=== PATIENT | female | born 1935 | race Caucasian/White ===

== ENCOUNTER 2017-01-13 09:57 | Day surgery (SDC) | payer MEDICARE, BC ==
[~2017-01-13] VITALS: Ht 172.7 cm; Wt 58.9 kg
[~2017-01-13 09:57] MED LIST: ACIPHEX20 MG PO; ALDACTONE 25MG25 MG PO; ASPIRIN E.C. 8181 MG PO; ASPIRIN E.C.325 MG PO; ATIVAN 1MG T1 MG/TAB PO; ATIVAN1 MG PO; BACTRIM DS 8001 TAB PO; BENADRYL25 M2 PO; BENADRYL25 MG PO; BUTALBITAL/APAP1 TA1 PO; CALCIUM600 M2 PO; CLONAZEPAM PO; CLONAZEPAM0.5 M1 PO; COLACE 100100 MG/CAP PO; COREG3.125 MG PO; CYMBALTA 60MG60 MG PO; DALMANE15 MG PO; DIGITEK0.25 MG PO; FISH OIL1 IU PO; FLUOXETINE10 MG PO; FUROSEMIDE; GABAPENTIN100 MG PO; LEVAQUIN 750MG750 M1 PO; LISINOPRIL5 MG PO; MULTIPLE VITAMI1 TAB PO; MVI PO; NEURONTIN100 MG PO; NORCO 325 MG-51 TAB; OMEPRAZOLE20 MG PO; OMNICEF 300MG300 MG PO; OSCAL W/VIT D250 MG PO; PRILOSEC 20MG20 MG PO; PROZAC 20MG20 MG PO; RANITIDINE75 MG PO; RESTASIS; SAVELLA50 MG PO; ULTRAM 50MG TAB50 MG PO; VICODIN 5/5001 UDTAB PO; VICODIN PO; VITAMIN C1 TAB PO; VITAMIN D1000 IU PO; ZANTAC150 MG PO; ZOCOR40 MG PO
[2017-01-13 10:55] LABS: HEMATOCRIT 42.6 % (37.0-47.0); HEMOGLOBIN 14.2 g/dl (12.5-16.0); MEAN CELL VOLUME 99 fl (80.0-100.0); MEAN CORPUSCULAR HEMOGLOBIN 33 pg (27.0-31.0); MEAN CORPUSCULAR HGB CONC 33 g/dl (33.0-37.0); MEAN PLATELET VOLUME 10.2 fl (7.4-10.4); PLATELET COUNT 190 K/mm3 (130-400); RED BLOOD COUNT 4.31 M/mm3 (4.10-5.30); REDCELL DISTRIBUTION WIDTH-CV 13.2 % (11.5-14.5); WHITE BLOOD COUNT 8.7 K/mm3 (4.8-10.8)
[2017-01-13 10:57] LABS: PROTHROMBIN TIME 10.5 SECONDS (9.7-12.8)
[2017-01-13 11:03] LABS: CALCIUM 10.4 mg/dL (8.4-10.2); CREATININE, serum 0.94 mg/dL (0.52-1.25); POTASSIUM 4.2 mmol/L (3.4-5.0)
[2017-01-13] MEDS ORDERED: LASIX 20MG TABL20 MG PO (11:11)
[2017-01-13 11:30] VITALS: BP 122/55; PULSE 61; TEMP 97.8
[2017-01-13 12:48] VITALS: BP 137/73; PULSE 69
[2017-01-13 13:45] VITALS: BP 120/73; PULSE 69
[2017-01-13 14:00] VITALS: BP 122/66; PULSE 67
[2017-01-13 14:30] VITALS: BP 133/65; PULSE 66
[2017-01-13 15:00] VITALS: BP 139/71; PULSE 67
== END 2017-01-13 16:09 | disposition home or self-care (01) ==
LOC: COL.RAD 09:57 → EUO 09:57 → COL.RAD 10:00 → EUO 10:00
PROVIDERS: Internal Medicine Cardiovascular Disease
DX: R06.02 Shortness of breath (principal); Z45.02 Encounter for adjustment and management of automatic implantable cardiac defibrillator; I42.8 Other cardiomyopathies
CPT/HCPCS: C1882; J2250; J3010; J3370; J7030; J7050

== ENCOUNTER → 2017-03-04 | Outpatient (CLI) | payer MEDICARE, BC ==
[~2017-03-04] MED LIST changes: +LASIX 20MG TABL20 MG PO
== END ==
LOC: MC.RAD 03-01 15:40
DX: Z12.31 Encounter for screening mammogram for malignant neoplasm of breast (principal)

== ENCOUNTER → 2018-03-16 | Outpatient (CLI) | payer MEDICARE, BC | LOC: COL.VAS 12:30 | DX: M79.89 Other specified soft tissue disorders (principal) ==

== ENCOUNTER 2018-05-17 02:43 | Inpatient (IN) | payer MEDICARE, BC ==
[~2018-05-17] VITALS: Ht 172.7 cm; Wt 67.5 kg
[~2018-05-17 02:43] MED LIST changes: +ATIVAN 0.50.5 MG/TAB PO; -ATIVAN1 MG PO; -CLONAZEPAM PO; +COREG 3.123.125 MG/T PO; -COREG3.125 MG PO; +KLONOPIN 0.5MG0.5 MG PO; -NEURONTIN100 MG PO; +NEURONTIN600 MG/TAB PO
[2018-05-17 03:10] LABS: BASO # 0.1 (0.0-0.2); BASO % 0.5 % (0.0-2.0); EOS % 0.4 % (0-4.0); GRAN # 9.3 (1.4-6.5); GRAN % 83.6 % (42.2-75.2); HEMATOCRIT 41.5 % (37.0-47.0); HEMOGLOBIN 13.9 g/dl (12.5-16.0); LYMPH # 1.2 (1.2-3.4); LYMPH % 11.2 % (20.0-51.0); MEAN CELL VOLUME 99 fl (80.0-100.0); MEAN CORPUSCULAR HEMOGLOBIN 33 pg (27.0-31.0); MEAN CORPUSCULAR HGB CONC 34 g/dl (33.0-37.0); MEAN PLATELET VOLUME 10.2 fl (7.4-10.4); MONO # 0.4 (0.1-0.6); PLATELET COUNT 161 K/mm3 (130-400); RED BLOOD COUNT 4.18 M/mm3 (4.10-5.30); REDCELL DISTRIBUTION WIDTH-CV 13.4 % (11.5-14.5)
[2018-05-17 03:23] LABS: ALANINE AMINOTRANSFERASE 30 U/L (9-52); ALBUMIN 3.9 gm/dL (3.5-5.0); ALKALINE PHOSPHATASE 114 U/L (50-136); ANION GAP 9 mmol/L (7-16); AST,SGOT 18 U/L (15-37); BILIRUBIN,TOTAL 0.7 mg/dL (0.0-1.0); BLOOD UREA NITROGEN 16 mg/dL (7-17); C-REACTIVE PROTEIN 0.6 mg/dL (0.0-0.9); CARBON DIOXIDE 27 mmol/L (22-30); CHLORIDE 96 mmol/L (98-107); CREATININE, serum 0.66 mg/dL (0.52-1.25); GLUCOSE 130 mg/dL (74-106); LIPASE 30 U/L (23-300); POTASSIUM 3.9 mmol/L (3.4-5.0); SODIUM 132 mmol/L (137-145); TOTAL PROTEIN 6.5 gm/dL (6.4-8.2)
[2018-05-17 03:37] LABS: TROPONIN-I < 0.012 ng/mL (0.000-0.034)
[2018-05-17] MEDS ORDERED: NEURONTIN100 MG/CAP PO (03:37)
[2018-05-17] MEDS ORDERED: NORCO 325 MG-51 TAB PO (03:38)
[2018-05-17] MEDS ORDERED: PROZAC40 MG PO (03:39)
[2018-05-17] MEDS ORDERED: PROZAC 20MG20 MG PO (03:40)
[2018-05-17] MEDS ORDERED: NEXIUM 20MG20 MG PO (03:42)
[2018-05-17] MEDS ORDERED: ZANTAC 150MG T150 MG PO (03:43)
[2018-05-17] MEDS ORDERED: EXCEDRIN1 TAB PO (03:43)
[2018-05-17] MEDS ORDERED: CLARITIN 1010 MG/TAB PO (03:44)
[2018-05-17] MEDS ORDERED: WELLBUTRIN 75MG75 MG PO (04:04)
[2018-05-17 04:38] LABS: COLLECTION METHOD CLEAN CATCH
[2018-05-17 04:50] LABS: PH 5 (5-8); SQUAMOUS EPITHELIAL 0-2 /hpf; URINE APPEARANCE Clear; URINE BACTERIA Rare /hpf; URINE BILIRUBIN Negative (NEGATIVE); URINE BLOOD Negative (NEGATIVE); URINE COLOR Yellow; URINE GLUCOSE Negative (NEGATIVE); URINE KETONE Trace (NEGATIVE); URINE LEUKOCYTE ESTERASE Trace (NEGATIVE); URINE NITRATE Positive (NEGATIVE); URINE PROTEIN(semi-quant) Negative (NEGATIVE); URINE RBC 0-2 /hpf; URINE UROBILINOGEN Negative (NEGATIVE)
[2018-05-17 08:14] VITALS: BP 121/58; PULSE 49; TEMP 99
[2018-05-17 11:54] VITALS: BP 115/50; PULSE 87; TEMP 98.5
[2018-05-17 16:16] VITALS: BP 123/66; PULSE 78; TEMP 98.2
[2018-05-17 20:11] VITALS: BP 110/58; PULSE 96; TEMP 98.3
[2018-05-17 23:21] VITALS: BP 119/54; PULSE 95; TEMP 98.7
[2018-05-18 04:24] VITALS: BP 101/46; PULSE 86; TEMP 100.4
[2018-05-18 06:45] LABS: BASO # 0.1 (0.0-0.2); BASO % 0.5 % (0.0-2.0); EOS % 0.1 % (0-4.0); GRAN # 8.5 (1.4-6.5); GRAN % 80.3 % (42.2-75.2); LYMPH # 1.5 (1.2-3.4); LYMPH % 14.2 % (20.0-51.0); MEAN CELL VOLUME 101 fl (80.0-100.0); MEAN CORPUSCULAR HGB CONC 32 g/dl (33.0-37.0); MEAN PLATELET VOLUME 10.9 fl (7.4-10.4); MONO # 0.5 (0.1-0.6); MONO % 4.3 % (1.7-9.3); PLATELET COUNT 139 K/mm3 (130-400); RED BLOOD COUNT 3.66 M/mm3 (4.10-5.30); REDCELL DISTRIBUTION WIDTH-CV 13.7 % (11.5-14.5)
[2018-05-18 06:54] LABS: HEMATOCRIT 36.9 % (37.0-47.0); HEMOGLOBIN 11.9 g/dl (12.5-16.0); MEAN CORPUSCULAR HEMOGLOBIN 33 pg (27.0-31.0)
[2018-05-18 06:59] LABS: CALCIUM 9.9 mg/dL (8.4-10.2); CREATININE, serum 0.6 mg/dL (0.52-1.25); POTASSIUM 3.9 mmol/L (3.4-5.0)
[2018-05-18 08:04] VITALS: BP 123/57; PULSE 57; TEMP 99.1
[2018-05-18 13:20] VITALS: BP 117/51; PULSE 64
[2018-05-18 13:35] VITALS: BP 131/59; PULSE 65
[2018-05-18 13:50] VITALS: BP 135/68; PULSE 85
[2018-05-18 14:05] VITALS: BP 130/62; PULSE 62
== END 2018-05-18 16:51 | disposition short-term general hospital (02) | DRG 391 ==
LOC: COL.ER 02:43 → MEDICAL 05:38
PROVIDERS: Emergency Medicine; Physician Assistant; Surgery
PROC: 0DJ08ZZ Inspection of Upper Intestinal Tract, Via Natural or Artificial Opening Endoscopic (ICD-10-PCS; principal; 2018-05-18 12:00)
DX: K22.2 Esophageal obstruction (principal); J69.0 Pneumonitis due to inhalation of food and vomit; I50.22 Chronic systolic (congestive) heart failure; N39.0 Urinary tract infection, site not specified; K21.0 Gastro-esophageal reflux disease with esophagitis; Z95.0 Presence of cardiac pacemaker; M79.7 Fibromyalgia; Z87.891 Personal history of nicotine dependence; G62.9 Polyneuropathy, unspecified; I48.91 Unspecified atrial fibrillation
CPT/HCPCS: 99223-AI; 99239; C9113; J0696; J1650; J2060; J2250; J2405; J2550; J2704; J7030; J7050; Q9967

== ENCOUNTER → 2018-05-31 | Outpatient (REF) ==
[~2018-05-31] MED LIST changes: +CLARITIN 1010 MG/TAB PO; +EXCEDRIN1 TAB PO; +NEURONTIN100 MG/CAP PO; +NEXIUM 20MG20 MG PO; +NORCO 325 MG-51 TAB PO; +PROZAC40 MG PO; +WELLBUTRIN 75MG75 MG PO; +ZANTAC 150MG T150 MG PO
[2018-05-31 17:35] LABS: COLLECTION METHOD CLEAN CATCH
[2018-05-31 17:47] LABS: MUCOUS Present /lpf; PH 9 (5-8); SQUAMOUS EPITHELIAL 0-2 /hpf; URINE APPEARANCE Clear; URINE BACTERIA Rare /hpf; URINE BILIRUBIN Negative (NEGATIVE); URINE BLOOD Negative (NEGATIVE); URINE COLOR Straw; URINE GLUCOSE Negative (NEGATIVE); URINE KETONE Negative (NEGATIVE); URINE LEUKOCYTE ESTERASE Negative (NEGATIVE); URINE NITRATE Negative (NEGATIVE); URINE PROTEIN(semi-quant) Negative (NEGATIVE); URINE RBC 0-2 /hpf; URINE UROBILINOGEN Negative (NEGATIVE); URINE WBC 0-2 /hpf
== END ==
LOC: ZCOL.LAB 17:33
PROVIDERS: Internal Medicine
DX: D72.829 Elevated white blood cell count, unspecified (principal); R33.9 Retention of urine, unspecified; R82.99 Other abnormal findings in urine

== ENCOUNTER → 2018-06-02 | Outpatient (CLI) | payer MEDICARE, BC | LOC: COL.RAD 14:17 | DX: J18.1 Lobar pneumonia, unspecified organism (principal); B34.8 Other viral infections of unspecified site | CPT/HCPCS: Q9967 ==

== ENCOUNTER 2018-11-15 14:45 | Inpatient (IN) | payer MEDICARE, BC ==
[~2018-11-15] VITALS: Ht 172.7 cm; Wt 70.6 kg
[2018-11-15] MEDS ORDERED: NEURONTIN100 MG/CAP PO (14:53)
[2018-11-15] MEDS ORDERED: NEURONTIN600 MG/TAB PO (14:56)
[2018-11-15] MEDS ORDERED: ERGOCALCIFER50000 IU PO (14:58)
[2018-11-15] MEDS ORDERED: PRILOSEC 20MG20 MG PO (14:59)
[2018-11-15] MEDS ORDERED: ULTRAM 50MG TAB50 MG PO (15:01)
[2018-11-15] MEDS ORDERED: COREG 3.123.125 MG/T PO (15:02)
[2018-11-15] MEDS ORDERED: CYMBALTA 60MG60 MG PO (15:03)
[2018-11-15] MEDS ORDERED: KLONOPIN 0.5MG0.5 MG PO (15:04)
[2018-11-15] MEDS ORDERED: ALDACTONE 25MG25 M1 PO (15:05)
[2018-11-15] MEDS ORDERED: LASIX 20MG TABL20 MG PO (15:07)
[2018-11-15 16:01] LABS: BASO # 0.1 (0.0-0.2); BASO % 0.7 % (0.0-2.0); EOS # 0.2 (0.0-0.7); EOS % 2.2 % (0-4.0); GRAN # 5.3 (1.4-6.5); GRAN % 59.9 % (42.2-75.2); HEMATOCRIT 39.2 % (37.0-47.0); HEMOGLOBIN 12.7 g/dl (12.5-16.0); LYMPH # 2.5 (1.2-3.4); LYMPH % 27.4 % (20.0-51.0); MEAN CELL VOLUME 97 fl (80.0-100.0); MEAN CORPUSCULAR HEMOGLOBIN 32 pg (27.0-31.0); MEAN CORPUSCULAR HGB CONC 32 g/dl (33.0-37.0); MEAN PLATELET VOLUME 10.3 fl (7.4-10.4); MONO # 0.9 (0.1-0.6); MONO % 9.5 % (1.7-9.3); PLATELET COUNT 180 K/mm3 (130-400); RED BLOOD COUNT 4.03 M/mm3 (4.10-5.30); REDCELL DISTRIBUTION WIDTH-CV 14.6 % (11.5-14.5)
[2018-11-15 16:07] LABS: PROTHROMBIN TIME 11.1 SECONDS (9.7-12.8)
[2018-11-15 16:12] LABS: ALBUMIN 3.5 gm/dL (3.5-5.0); BILIRUBIN,TOTAL 0.6 mg/dL (0.0-1.0); CALCIUM 9.9 mg/dL (8.4-10.2); CREATININE, serum 0.68 mg/dL (0.52-1.25); POTASSIUM 4.5 mmol/L (3.4-5.0); TOTAL PROTEIN 5.9 gm/dL (6.4-8.2)
[2018-11-15 16:26] LABS: COLLECTION METHOD CATHETER
[2018-11-15 16:31] LABS: MUCOUS Present /lpf; PH 5 (5-8); SQUAMOUS EPITHELIAL 0-2 /hpf; URINE APPEARANCE Clear; URINE BACTERIA None Seen /hpf; URINE BILIRUBIN Negative (NEGATIVE); URINE BLOOD Negative (NEGATIVE); URINE COLOR Yellow; URINE GLUCOSE Negative (NEGATIVE); URINE KETONE Negative (NEGATIVE); URINE LEUKOCYTE ESTERASE Negative (NEGATIVE); URINE NITRATE Negative (NEGATIVE); URINE PROTEIN(semi-quant) Negative (NEGATIVE); URINE RBC 0-2 /hpf; URINE UROBILINOGEN Negative (NEGATIVE)
[2018-11-15 17:36] VITALS: BP 113/64; PULSE 60; TEMP 97.8
[2018-11-15 17:39] VITALS: BP 113/64; PULSE 60; TEMP 97.8
--- NOTE | 2018-11-15 19:33 | NUR ---
Patient settled into room 345. Report from ER nurse. Patient Inital,5 page an med rec completed. Patient given IV dilaudid for pain per orders. It did relieve her pain, but she does report chronic leg cramps. Scds to Ble which she reports helped. Mohsen to LLE. Ice pack to Right Hip. Rle elevated. Npo at 0000, she is having pudding and crackers for dinner. Bedside report to Mac JULIAN
[2018-11-15 20:16] VITALS: BP 112/53; PULSE 62; TEMP 97.6
[2018-11-15 21:00] VITALS: BP 110/55; PULSE 63; TEMP 97.5
[2018-11-16] VITALS (13 sets, daily range): BP systolic 85–126; BP diastolic 45–64; PULSE 66–99; TEMP 97.3–98.6
--- NOTE | 2018-11-16 06:15 | NUR ---
Pt slept during the night, she has some C/O pain relieved by medication, ice packs, VS have remained stable during the shift.
[2018-11-16 06:40] LABS: BASO % 0.4 % (0.0-2.0); EOS # 0.2 (0.0-0.7); EOS % 1.7 % (0-4.0); GRAN # 5.4 (1.4-6.5); GRAN % 58.5 % (42.2-75.2); HEMOGLOBIN 11.7 g/dl (12.5-16.0); LYMPH # 2.6 (1.2-3.4); LYMPH % 28.6 % (20.0-51.0); MEAN CELL VOLUME 97 fl (80.0-100.0); MEAN CORPUSCULAR HEMOGLOBIN 32 pg (27.0-31.0); MEAN CORPUSCULAR HGB CONC 33 g/dl (33.0-37.0); MEAN PLATELET VOLUME 10.7 fl (7.4-10.4); MONO % 10.5 % (1.7-9.3); PLATELET COUNT 177 K/mm3 (130-400); RED BLOOD COUNT 3.62 M/mm3 (4.10-5.30); REDCELL DISTRIBUTION WIDTH-CV 14.8 % (11.5-14.5)
[2018-11-16 06:44] LABS: HEMATOCRIT 35.1 % (37.0-47.0)
[2018-11-16 06:49] LABS: CALCIUM 9.8 mg/dL (8.4-10.2); CREATININE, serum 0.66 mg/dL (0.52-1.25)
[2018-11-16 07:12] LABS: POTASSIUM 4.6 mmol/L (3.4-5.0)
--- NOTE | 2018-11-16 12:33 | NUR ---
Initial visit; Patient thanked Timber Robber for looking in on her and offering God's blessings.
--- NOTE | 2018-11-16 14:26 | NUR ---
SW and SW student met with the patient to discuss discharge plan. The patient lives alone at [facility] in independent living. She reports independence with ADLs and has a cane and walker. The patient's PCP is Dr. Isaias Gil and she receives her medications by delivery through [employer]. She reports no difficulties obtaining her meds. The patient does not have advanced directives in EMR, but she states that she does have them completed and that her daughter is her DPOA-HC. The patient is to possibly have surgery today. SW to continue to follow.
--- NOTE | 2018-11-16 20:00 | NUR ---
Patient in bed resting. Alert and oriented x3. Shift assessment complete. Incision x3 to right hip, with gauze, CDI. Pierre to dependent drainage with hazy alverto urine present. Tedhose and SCDs to BLE. Denies pain at this time. Denies pain at this time. Denies further needs at this time.
[2018-11-17] VITALS (7 sets, daily range): BP systolic 91–113; BP diastolic 39–57; PULSE 64–79; TEMP 97.8–98.4
--- NOTE | 2018-11-17 00:57 | NUR ---
Contacted Stacy COMMUNITY SERVICE ORGANIZATION DIRECTOR. Patient having low urine output. Small bolus ordered. Will continue to monitor.
--- NOTE | 2018-11-17 05:10 | NUR ---
Patient has rested well through the night. Minimal needs. Pierre maintained to dependent drainage with hazy alverto urine present. Denies pain at this time. Denies further needs at this time. Will report off to day shift.
[2018-11-17 06:56] LABS: HEMATOCRIT 31.3 % (37.0-47.0)
[2018-11-17 07:05] LABS: CREATININE, serum 0.61 mg/dL (0.52-1.25)
--- NOTE | 2018-11-17 09:02 | NUR ---
Patient alert and oriented, answers questions appropriately. See assessment. RLE with three incision sites, dressings with drainage noted. New dressings applied per drs order. 1+ edema noted to RLE, pulses palpable, no numbness or tingling. Pierre catheter removed per drs order. Patient assisted to chair with assist x1, gait belt and FWW. No other c/o at this time.
--- NOTE | 2018-11-17 11:38 | NUR ---
The patient's nurse informed MARY KAY that the patient is wanting to go to [facility] for a skilled stay upon discharge. MARY KAY has contacted and faxed a referral to Kaykay at [facility]. MARY KAY to continue to follow.
--- NOTE | 2018-11-17 15:52 | NUR ---
Kaykay, at [facility], reports that they can accept the patient for a skilled stay. SW informed the patient.
--- NOTE | 2018-11-17 20:30 | NUR ---
Patient resting in bed at this time. Patient is alert and oriented, answers questions appropriately. Gauze dressing over incisions to right hip are CDI. Patient is not moving operative leg well, has significant amount of pain just with repositioning, but declines pain medication. Patient states she is very anxious about needing to get up to the bathroom during the night because she is not moving well and having a lot of pain. Patient educated on using her call light before need is significant. Patient denies further needs at this time, call light within reach.
[2018-11-18 04:15] VITALS: BP 126/55; PULSE 98; TEMP 98.2
--- NOTE | 2018-11-18 05:42 | NUR ---
Patient rested intermittently overnight. Patient up to bedside commode with x2 assist and a moderate amount of pain. Patient had a small amount of continent urine output. Patient declined pain medication, but has been increasingly confused overnight, reoriented fairly easily. Patient denies further needs at this time, call light within reach.
[2018-11-18 06:49] LABS: BASO % 0.3 % (0.0-2.0); EOS # 0.1 (0.0-0.7); EOS % 0.6 % (0-4.0); GRAN # 6.8 (1.4-6.5); GRAN % 69.1 % (42.2-75.2); LYMPH # 1.9 (1.2-3.4); LYMPH % 18.9 % (20.0-51.0); MEAN CELL VOLUME 98 fl (80.0-100.0); MEAN CORPUSCULAR HGB CONC 33 g/dl (33.0-37.0); MONO # 1.1 (0.1-0.6); MONO % 10.7 % (1.7-9.3); PLATELET COUNT 137 K/mm3 (130-400); RED BLOOD COUNT 2.73 M/mm3 (4.10-5.30); REDCELL DISTRIBUTION WIDTH-CV 14.6 % (11.5-14.5)
[2018-11-18 06:52] LABS: HEMATOCRIT 26.7 % (37.0-47.0); HEMOGLOBIN 8.9 g/dl (12.5-16.0); MEAN CORPUSCULAR HEMOGLOBIN 33 pg (27.0-31.0)
[2018-11-18 07:00] LABS: CALCIUM 9.4 mg/dL (8.4-10.2); CREATININE, serum 0.56 mg/dL (0.52-1.25); POTASSIUM 3.8 mmol/L (3.4-5.0)
[2018-11-18] MEDS ORDERED: KLONOPIN 0.5MG0.5 MG PO (10:14)
[2018-11-18] MEDS ORDERED: ULTRAM 50MG TAB50 MG PO (10:14)
[2018-11-18] MEDS ORDERED: ASPI325T6 PO (10:14)
[2018-11-18] MEDS ORDERED: GOOD NEIGH1200 MG/15 PO (10:15)
[2018-11-18] MEDS ORDERED: OSCAL 500 TAB500 MG PO (10:15)
[2018-11-18] MEDS ORDERED: VITAMIN C500 MG PO (10:16)
[2018-11-18] MEDS ORDERED: DUO-KAPS1 CAP PO (10:17)
--- NOTE | 2018-11-18 11:00 | NUR ---
Faxed DC orders to [facility], Transport setup for 12 noon. Relayed infor to . NOthing further.
[2018-11-18 11:53] VITALS: BP 126/55; PULSE 98; TEMP 98.2
--- NOTE | 2018-11-18 13:04 | NUR ---
Patient transferred to [facility] via wheelchair with transporation staff at 1250. Attempted to call report, no answer, will attempt again.
== END 2018-11-18 12:45 | DRG 481 ==
LOC: COL.ER 14:45 → SURG 15:54
PROVIDERS: Emergency Medicine; Nurse Practitioner Family; Orthopaedic Surgery; Physician Assistant; ADMIT Orthopaedic Surgery Sports Medicine
PROC: 0QH636Z Insertion of Intramedullary Internal Fixation Device into Right Upper Femur, Percutaneous Approach (ICD-10-PCS; principal; 2018-11-16 16:00)
DX: S72.141A Displaced intertrochanteric fracture of right femur, initial encounter for closed fracture (principal); E87.1 Hypo-osmolality and hyponatremia; I50.22 Chronic systolic (congestive) heart failure; M79.7 Fibromyalgia; G89.29 Other chronic pain; F41.8 Other specified anxiety disorders; G62.9 Polyneuropathy, unspecified; W00.0XXA Fall on same level due to ice and snow, initial encounter; Z95.0 Presence of cardiac pacemaker; Z87.891 Personal history of nicotine dependence; E83.52 Hypercalcemia
CPT/HCPCS: 99222-AI; 99233-AI; A9284; C1713; J0690; J1170; J2250; J2370; J2405; J2704; J2795; J3010; J7030; J7040

== ENCOUNTER → 2018-12-15 | Outpatient (REF) ==
[~2018-12-15] MED LIST changes: +ALDACTONE 25MG25 M1 PO; +ASPI325T6 PO; +DUO-KAPS1 CAP PO; +ERGOCALCIFER50000 IU PO; +GOOD NEIGH1200 MG/15 PO; +OSCAL 500 TAB500 MG PO; +VITAMIN C500 MG PO
[2018-12-15 18:11] LABS: BASO # 0.1 (0.0-0.2); BASO % 0.5 % (0.0-2.0); EOS # 0.1 (0.0-0.7); EOS % 0.4 % (0-4.0); GRAN # 13.6 (1.4-6.5); GRAN % 80.1 % (42.2-75.2); HEMATOCRIT 40.1 % (37.0-47.0); LYMPH # 2.3 (1.2-3.4); LYMPH % 13.7 % (20.0-51.0); MEAN CELL VOLUME 98 fl (80.0-100.0); MEAN CORPUSCULAR HEMOGLOBIN 32 pg (27.0-31.0); MEAN CORPUSCULAR HGB CONC 32 g/dl (33.0-37.0); MEAN PLATELET VOLUME 10.7 fl (7.4-10.4); MONO # 0.8 (0.1-0.6); MONO % 4.9 % (1.7-9.3); PLATELET COUNT 245 K/mm3 (130-400); RED BLOOD COUNT 4.11 M/mm3 (4.10-5.30); REDCELL DISTRIBUTION WIDTH-CV 14.7 % (11.5-14.5)
[2018-12-15 18:17] LABS: CALCIUM 10.8 mg/dL (8.4-10.2); CREATININE, serum 0.86 mg/dL (0.52-1.25); POTASSIUM 4.1 mmol/L (3.4-5.0)
[2018-12-16 10:48] LABS: COLLECTION METHOD CATHETER
[2018-12-16 10:57] LABS: MUCOUS Present /lpf; PH 6 (5-8); SQUAMOUS EPITHELIAL 0-2 /hpf; URINE APPEARANCE Clear; URINE BACTERIA Rare /hpf; URINE BILIRUBIN Negative (NEGATIVE); URINE BLOOD Negative (NEGATIVE); URINE COLOR Yellow; URINE GLUCOSE Negative (NEGATIVE); URINE KETONE Negative (NEGATIVE); URINE LEUKOCYTE ESTERASE Negative (NEGATIVE); URINE NITRATE Negative (NEGATIVE); URINE PROTEIN(semi-quant) Negative (NEGATIVE); URINE RBC 0-2 /hpf; URINE UROBILINOGEN Negative (NEGATIVE); URINE WBC 0-2 /hpf
== END ==
LOC: ZCOL.LAB 18:06
PROVIDERS: Internal Medicine
DX: Z01.89 Encounter for other specified special examinations (principal)

== ENCOUNTER → 2020-07-18 | Outpatient (CLI) | payer MEDICARE, BC | LOC: COL.RAD 10:22 | DX: D35.1 Benign neoplasm of parathyroid gland (principal) | CPT/HCPCS: A9500 ==

== ENCOUNTER → 2021-03-30 | Outpatient (CLI) | payer MEDICARE, BC ==
[~2021-03-30] MED LIST changes: +ALAVERT10 M1 PO; +ARICEPT10 MG PO; +CORDARONE200 MG/TAB PO; +DESYREL 50MG50 MG PO; +EFFEXOR XR37.5 MG/CA PO; +EFFEXOR XR75 MG/CAP PO; +FLAGYL500 MG PO; +FLONASEALLERGY NS; +FOSAMAX 70MG TA70 MG PO; +PEPCID 20MG TAB20 MG PO; +PROTONIX 40MG T40 MG PO; +REQUIP0.25 MG PO; +ROXICODONE 55 MG/TAB PO; +SYNTHROID0.05 MG/TA PO; +TYLENOL 325MG325 MG PO; +VISION FORMULA1 EAC1 PO; +VITAMIN D31000 I1 PO; +WELLBUTRIN XL150 MG PO; +XANAX 0.5MG0.5 MG PO; +ZOFRAN 4MG T4 MG/TAB PO
[2021-03-30 13:49] LABS: BASO # 0.1 (0.0-0.2); BASO % 0.7 % (0.0-2.0); EOS % 0.2 % (0-4.0); GRAN # 5.8 (1.4-6.5); HEMATOCRIT 48.4 % (37.0-47.0); LYMPH # 2.3 (1.2-3.4); MEAN CELL VOLUME 103 fl (80.0-100.0); MEAN CORPUSCULAR HEMOGLOBIN 34 pg (27.0-31.0); MEAN CORPUSCULAR HGB CONC 33 g/dl (33.0-37.0); MEAN PLATELET VOLUME 11.2 fl (7.4-10.4); MONO # 0.8 (0.1-0.6); MONO % 8.8 % (1.7-9.3); PLATELET COUNT 215 K/mm3 (130-400); RED BLOOD COUNT 4.72 M/mm3 (4.10-5.30); REDCELL DISTRIBUTION WIDTH-CV 13.6 % (11.5-14.5)
[2021-03-30 13:54] LABS: ALANINE AMINOTRANSFERASE 21 U/L (4-34); ALBUMIN 4.4 gm/dL (3.5-5.0); ALKALINE PHOSPHATASE 75 U/L (50-136); ANION GAP 7 mmol/L (7-16); AST,SGOT 27 U/L (15-37); BILIRUBIN,TOTAL 1.2 mg/dL (0.0-1.0); BLOOD UREA NITROGEN 21 mg/dL (7-17); CALCIUM 9.9 mg/dL (8.4-10.2); CARBON DIOXIDE 29 mmol/L (22-30); CHLORIDE 101 mmol/L (98-107); CREATININE, serum 0.81 (0.52-1.25); GLUCOSE 115 mg/dL (74-106); POTASSIUM 4.2 mmol/L (3.4-5.0); SODIUM 137 mmol/L (137-145); TOTAL PROTEIN 7.5 gm/dL (6.4-8.2)
[2021-03-30 14:09] LABS: TROPONIN-I < 0.012 ng/mL (0.000-0.035)
== END ==
LOC: ZCOL.LAB 12:39
PROVIDERS: Nurse Practitioner Family
DX: D35.1 Benign neoplasm of parathyroid gland (principal); R61 Generalized hyperhidrosis; R06.00 Dyspnea, unspecified

== ENCOUNTER 2021-09-03 13:26 | Inpatient (IN) | payer MEDICARE, BC ==
[~2021-09-03] VITALS: Ht 175.3 cm; Wt 79.4 kg
[~2021-09-03 13:26] MED LIST changes: -ALAVERT10 M1 PO; -ARICEPT10 MG PO; -CORDARONE200 MG/TAB PO; -DESYREL 50MG50 MG PO; -EFFEXOR XR37.5 MG/CA PO; -EFFEXOR XR75 MG/CAP PO; -FLAGYL500 MG PO; -FLONASEALLERGY NS; -FOSAMAX 70MG TA70 MG PO; -PEPCID 20MG TAB20 MG PO; -PROTONIX 40MG T40 MG PO; -REQUIP0.25 MG PO; -ROXICODONE 55 MG/TAB PO; -SYNTHROID0.05 MG/TA PO; -TYLENOL 325MG325 MG PO; -VISION FORMULA1 EAC1 PO; -VITAMIN D31000 I1 PO; -WELLBUTRIN XL150 MG PO; -XANAX 0.5MG0.5 MG PO; -ZOFRAN 4MG T4 MG/TAB PO
[2021-09-03 14:30] LABS: BASO % 0.4 % (0.0-2.0); EOS % 0.2 % (0-4.0); GRAN # 3.4 K/mm3 (1.4-6.5); GRAN % 69.9 % (42.2-75.2); HEMATOCRIT 49.4 % (37.0-47.0); HEMOGLOBIN 16.5 g/dl (12.5-16.0); LYMPH # 1.2 K/mm3 (1.2-3.4); LYMPH % 24.6 % (20.0-51.0); MEAN CELL VOLUME 100 fl (80.0-100.0); MEAN CORPUSCULAR HEMOGLOBIN 34 pg (27.0-31.0); MEAN CORPUSCULAR HGB CONC 33 g/dl (33.0-37.0); MONO # 0.2 K/mm3 (0.1-0.6); MONO % 4.5 % (1.7-9.3); PLATELET COUNT 157 K/mm3 (130-400); RED BLOOD COUNT 4.92 M/mm3 (4.10-5.30); REDCELL DISTRIBUTION WIDTH-CV 14.2 % (11.5-14.5)
[2021-09-03 14:55] LABS: ALBUMIN 4.1 gm/dL (3.4-4.8); BILIRUBIN,TOTAL 0.8 mg/dL (0.2-1.2); CALCIUM 9.3 mg/dL (8.4-10.2); CREATININE, serum 1.06 mg/dL (0.57-1.11); POTASSIUM 4.6 mmol/L (3.5-4.5); TOTAL PROTEIN 6.9 gm/dL (6.2-8.1)
[2021-09-03] MEDS ORDERED: ULTRAM 50MG TAB50 MG PO (16:42)
[2021-09-03] MEDS ORDERED: SYNTHROID0.05 MG/TA PO (16:44)
[2021-09-03] MEDS ORDERED: XANAX 0.5MG0.5 MG PO (16:44)
[2021-09-03] MEDS ORDERED: REQUIP0.25 MG PO (16:44)
[2021-09-03] MEDS ORDERED: EFFEXOR XR75 MG/CAP PO (16:45)
[2021-09-03] MEDS ORDERED: DESYREL 50MG50 MG PO (16:45)
[2021-09-03] MEDS ORDERED: PEPCID 20MG TAB20 MG PO (16:46)
[2021-09-03] MEDS ORDERED: CORDARONE200 MG/TAB PO (16:46)
[2021-09-03] MEDS ORDERED: WELLBUTRIN XL150 MG PO (16:46)
[2021-09-03] MEDS ORDERED: PROTONIX 40MG T40 MG PO (16:48)
[2021-09-03] MEDS ORDERED: FOSAMAX 70MG TA70 MG PO (16:48)
[2021-09-03] MEDS ORDERED: ARICEPT10 MG PO (16:48)
[2021-09-03] MEDS ORDERED: ALDACTONE 25MG25 M1 PO (16:49)
[2021-09-03 18:05] VITALS: BP 96/55; PULSE 79; TEMP 97.5
[2021-09-03 19:46] VITALS: BP 141/49; PULSE 87; TEMP 98.2
[2021-09-04] VITALS (7 sets, daily range): BP systolic 94–126; BP diastolic 43–95; PULSE 46–102; TEMP 97.5–99.4
--- NOTE | 2021-09-04 01:09 | NUR ---
PATIENT HAS BEEN VERY ANXIOUS AND RESTLESS D/T ABD PAIN. UNABLE TO ANSWER QUESTIONS D/T ABD PAIN. GIVEN IV MORPHINE ORDERED WITH PATIENT ABLE TO TOLERATE PO ULTRAM INBETWEEN IV MORPHINE DOSING. SEE MAR FOR XANAX GIVEN DUE TO PATIENT'S ANXIETY, PATIENT AGREED SHE WOULD NEED XANAX TO HELP WITH ANXIETY AND PAIN. PATIENT FREQUENTLY TURNED FROM SIDE TO SIDE FOR COMFORT.
--- NOTE | 2021-09-04 05:49 | NUR ---
PATIENT STATES SHE IS STILL UNABLE TO RECALL WHAT MEDICATIONS SHE ROUTINELY TAKES. CONFIRMES THAT HER PHARMACY IS [facility] IN [facility], STATES SHE HAS A LIST OF HER MEDS "BACK AT MY APARTMENT"
[2021-09-04 06:21] LABS: HEMATOCRIT 42.5 % (37.0-47.0); MEAN CELL VOLUME 103 fl (80.0-100.0); MEAN CORPUSCULAR HEMOGLOBIN 34 pg (27.0-31.0); MEAN CORPUSCULAR HGB CONC 33 g/dl (33.0-37.0); MEAN PLATELET VOLUME 10.8 fl (7.4-10.4); PLATELET COUNT 177 K/mm3 (130-400); RED BLOOD COUNT 4.12 M/mm3 (4.10-5.30); REDCELL DISTRIBUTION WIDTH-CV 14.6 % (11.5-14.5)
[2021-09-04 06:32] LABS: C-REACTIVE PROTEIN 15.91 mg/dL (0.00-0.50); CALCIUM 7.8 mg/dL (8.4-10.2); CREATININE, serum 1.3 mg/dL (0.57-1.11); POTASSIUM 4.9 mmol/L (3.5-4.5)
[2021-09-04 06:37] LABS: HEMOGLOBIN 13.9 g/dl (12.5-16.0)
--- NOTE | 2021-09-04 07:02 | NUR ---
CHANGE OF SHIFT REPORT GIVEN TO DAY SHIFT NURSE, MORRIS JULIAN.
--- NOTE | 2021-09-04 07:26 | NUR ---
PATIENT x2 ASSIST WITH TRANSFER THIS MORNIN TO COMMODE WITH GAIT[employer]ELT, STATES HER STOMACH FEELS BETTER, NO REBOUND TENDERNESS, O2 @ 2L VIA NC on, X1 assist with ADL's C/O LEFT HAND BEING NUMB AND FALLING ASLEEP. KNOWS LIMITATIONS AND ASKS FOR HELP, DID THINK TODAY WAS TUESDAY FOR THE [employer] GAME. CALL LIGHT AND BED RAILS IN PLACE. SIDE TABLE WITHIN REACH PER PATIENTS REQUEST.
--- NOTE | 2021-09-04 07:57 | NUR ---
REPORT RECIEVED FROM SERA. NO COMPLAINTS OF PAIN OR DYSPNEA. NO SIGNS OR SYMPTOMS OF DISTRESS. CALL LIGHT WITHIN REACH
[2021-09-04] MEDS ORDERED: EFFEXOR XR37.5 MG/CA PO (08:25)
[2021-09-04] MEDS ORDERED: VITAMIN D31000 I1 PO (08:28)
[2021-09-04] MEDS ORDERED: TYLENOL 325MG325 MG PO (08:28)
[2021-09-04] MEDS ORDERED: LASIX 20MG TABL20 MG PO (08:30)
[2021-09-04] MEDS ORDERED: EXCEDRIN1 TAB PO (08:31)
[2021-09-04] MEDS ORDERED: ZOFRAN 4MG T4 MG/TAB PO (08:32)
[2021-09-04] MEDS ORDERED: VISION FORMULA1 EAC1 PO (08:32)
[2021-09-04] MEDS ORDERED: ALAVERT10 M1 PO (08:33)
[2021-09-04] MEDS ORDERED: FLONASEALLERGY NS (08:33)
[2021-09-04 08:43] LABS: BAND 31 % (0-10); HYPOCHROMIA 3+; LYMPHOCYTE 1 % (20.0-51.0); NEUTROPHILS 66 % (42.0-75.2); PLATELET ESTIMATE NORMAL (NORMAL)
[2021-09-04 08:44] LABS: ANISOCYTOSIS 1+
--- NOTE | 2021-09-04 09:11 | NUR ---
MARY KAY met with the patient to discuss discharge plan. The patient resides alone in [place] at [facility]. She reports that she is a lively 86-year-old and is independent with ADLs and has a cane and walker. She states that she has a nurse from [facility] visit her every Tuesday. MARY KAY contacted Myla at [facility] and confirmed services. Myla reports that the patient has private pay nursing. She reports that they are able to add on PT/OT/fdc home health, if needed. The patient's PCP is Dr. Nicholas Perdue and she receives her medications from [place]. She reports no difficulties obtaining her meds. The patient does not have a DPOA-HC in EMR, but she states that she does have one completed and that she designated her daughter, Mary Garcia (ph#[phone]). Mary lives in [place]. The patient reports that Dr. Kimbrough's office should have a copy of the document. MARY KAY contacted Dr. Perdue's office and requested a copy. MARY KAY received the document and placed it in the patient's chart. The patien's DPOA-HC is her daughter, Mary. The patient plans to return back to her [place] at [facility] upon discharge. She reports that she will need [facility] to transport her home. MARY KAY notified Kaykay at [facility]. She reports that they can provide transportation. PT/OT have been ordered. MARY KAY then contacted the patient's daughter, Mary, to review the above. Mary reports no concern with the patient returning back to [place] apartment, if the patient is doing well. She reports that if the patient is needing more therapy, she would be interested in the patient going to [facility] or getting home health. She reports that the patient lives a very sedentary life. Awaiting therapy's recs. Discharge plan: home ([facility] Awaiting theray's recs*
--- NOTE | 2021-09-04 13:52 | NUR ---
OT is recommending post-acute rehab vs home health. SW met with the patient to update and discuss post-acute rehab upon discharge. The patient reports that she would be open to going to [facility] for SNF upon discharge. MARY KAY contacted and updated the patient's daughter, Mary. Mary is supportive of the patient's decision. MARY KAY contacted and faxed a referral to Kaykay at [facility]. Awaiting screen.
--- NOTE | 2021-09-04 16:03 | NUR ---
Kaykay, at [facility], reports that they will plan on continuing to follow the patient for her to come to [facility] when ready to discharge.
--- NOTE | 2021-09-04 18:29 | NUR ---
PT RESTING COMFORTABLY IN BED. NO COMPLAINTS OF PAIN OR NAUSEA. NO SIGNS OR SYMPTOMS OF DISTRESS. REPORT GIVEN TO SALES HUNTER.
[2021-09-05] VITALS (7 sets, daily range): BP systolic 104–131; BP diastolic 37–52; PULSE 60–66; TEMP 97.4–98.9
--- NOTE | 2021-09-05 07:07 | NUR ---
REPORT RECIEVED FROM ELIEL CELIS. PT RESTING IN BED. NO SIGNS OF DISTRESS. NO COMPLAINTS OF PAIN, NAUSEA, OR DYSPNEA. CALL LIGHT WITHIN REACH
[2021-09-05 07:11] LABS: MEAN CELL VOLUME 103 fl (80.0-100.0); MEAN CORPUSCULAR HGB CONC 33 g/dl (33.0-37.0); MEAN PLATELET VOLUME 11.4 fl (7.4-10.4); PLATELET COUNT 113 K/mm3 (130-400)
[2021-09-05 07:20] LABS: CALCIUM 7.3 mg/dL (8.4-10.2); CREATININE, serum 1.26 mg/dL (0.57-1.11); POTASSIUM 4.5 mmol/L (3.5-4.5)
[2021-09-05 07:32] LABS: HEMOGLOBIN 11.6 g/dl (12.5-16.0); MEAN CORPUSCULAR HEMOGLOBIN 34 pg (27.0-31.0)
[2021-09-05 08:22] LABS: BAND 30 % (0-10); LYMPHOCYTE 18 % (20.0-51.0); NEUTROPHILS 48 % (42.0-75.2); PLATELET ESTIMATE DECREASED (NORMAL)
[2021-09-05 08:23] LABS: ANISOCYTOSIS 1+
--- NOTE | 2021-09-05 10:15 | NUR ---
PT ASSESSED. NO SIGNS OR SYMPTOMS OF DISTRESS. COMPLAINS OF PAIN IN ABD THAT "ISN'T GETTING BETTER AND IS A LITTLE WORSE THAN LAST NIGHT". CALL LIGHT WITHIN REACH
[2021-09-06] VITALS (182 sets, daily range): BP systolic 104–163; BP diastolic 51–81; PULSE 63–78; TEMP 97.5–98.4; O2SAT 81–99
[2021-09-06 06:46] LABS: HEMOGLOBIN 11.1 g/dl (12.5-16.0); MEAN CELL VOLUME 102 fl (80.0-100.0); MEAN CORPUSCULAR HEMOGLOBIN 33 pg (27.0-31.0); MEAN CORPUSCULAR HGB CONC 33 g/dl (33.0-37.0); PLATELET COUNT 113 K/mm3 (130-400); RED BLOOD COUNT 3.33 M/mm3 (4.10-5.30)
[2021-09-06 06:58] LABS: HEMATOCRIT 33.9 % (37.0-47.0)
[2021-09-06 07:01] LABS: CALCIUM 7.8 mg/dL (8.4-10.2); CREATININE, serum 0.75 mg/dL (0.57-1.11); POTASSIUM 4.1 mmol/L (3.5-4.5)
--- NOTE | 2021-09-06 07:43 | NUR ---
PT ASSESSED. NO SIGNS OR SYMPTOMS OF DISTRESS. NO COMPLAINTS OF PAIN OR NAUSEA. NO CONCERNS OR QUESTIONS AT THIS TIME. CALL LIGHT WITHIN REACH
--- NOTE | 2021-09-06 07:44 | NUR ---
REPORT RECEIVED FROM ELIEL CELIS. PT RESTING IN BED. NO COMPLAINTS OF PAIN OR NAUSEA. NO SIGNS OR SYMPTOMS OF DISTRESS. CALL LIGHT WITHIN REACH
[2021-09-06 07:51] LABS: BAND 6 % (0-10); HYPOCHROMIA 1+; LYMPHOCYTE 6 % (20.0-51.0); PLATELET ESTIMATE DECREASED (NORMAL)
[2021-09-06 07:52] LABS: EOSINOPHIL 2 % (0-4); NEUTROPHILS 83 % (42.0-75.2)
[2021-09-06 07:54] LABS: DOHLE BODIES PRESENT
--- NOTE | 2021-09-06 15:15 | NUR ---
PT REFUSED TX
--- NOTE | 2021-09-06 18:23 | NUR ---
PT SENT TO SURGERY. CONSENT SIGNED. ALL QUESTIONS ANSWERED.
--- NOTE | 2021-09-06 20:57 | NUR ---
Patient arrives to ICU room 8 from surgery via ICU bed. Patient arrives receiving 6L oxygen via oxymask, tolerating well. All vitals within normal limits. Patient is alert and follows verbal commands. She answers simple questions but orientation questions are all answered incorrectly. Per report received from PACU nurse, Verito, this is her baseline. Per report, a RSC triple lumen central line was placed during surgery. Patient receiving NS via gravity tubing to the blue port. Patient also has a peripheral 22G to the right hand that is saline locked at this time. An epidural is in place with UTILITY MAINTENANCE WORKER remote within patient's reach. Patient arrives with a tobar catheter draining clear yellow urine. 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 A bandaid is covering a single lap site to the LLQ. Patient switched to 3L nasal cannula as this was what she was receiving prior to surgery according to Verito GROUND SUPPORT AGENT. Patient tolerates well with sats low-mid 90s. Verito, GROUND SUPPORT AGENT, recovers patient at bedside, leaving at 2127.
[2021-09-07] VITALS (567 sets, daily range): BP systolic 107–151; BP diastolic 55–71; PULSE 62–111; TEMP 97.7–98.7; O2SAT 82–97
[2021-09-07 04:46] LABS: COLLECTION METHOD CLEAN CATCH
[2021-09-07 04:56] LABS: BASO % 0.1 % (0.0-2.0); EOS % 0.3 % (0-4.0); GRAN # 9.3 K/mm3 (1.4-6.5); GRAN % 88.1 % (42.2-75.2); HEMATOCRIT 39.4 % (37.0-47.0); LYMPH # 0.4 K/mm3 (1.2-3.4); LYMPH % 3.3 % (20.0-51.0); MEAN CELL VOLUME 100 fl (80.0-100.0); MEAN CORPUSCULAR HEMOGLOBIN 33 pg (27.0-31.0); MEAN CORPUSCULAR HGB CONC 33 g/dl (33.0-37.0); MEAN PLATELET VOLUME 10.5 fl (7.4-10.4); MONO # 0.7 K/mm3 (0.1-0.6); PLATELET COUNT 137 K/mm3 (130-400); RED BLOOD COUNT 3.96 M/mm3 (4.10-5.30)
[2021-09-07 04:58] LABS: MUCOUS Present /lpf; PH 5 (5-8); SQUAMOUS EPITHELIAL 0-2 /hpf; URINE APPEARANCE Hazy; URINE BACTERIA None Seen /hpf; URINE BILIRUBIN Negative (NEGATIVE); URINE BLOOD 2+ (NEGATIVE); URINE COLOR Yellow; URINE GLUCOSE Negative (NEGATIVE); URINE KETONE 2+ (NEGATIVE); URINE LEUKOCYTE ESTERASE Trace (NEGATIVE); URINE NITRATE Negative (NEGATIVE); URINE PROTEIN(semi-quant) 2+ (NEGATIVE); URINE RBC >50 /hpf; URINE UROBILINOGEN Negative (NEGATIVE)
[2021-09-07 05:00] LABS: HEMOGLOBIN 13.1 g/dl (12.5-16.0)
[2021-09-07 05:17] LABS: ALBUMIN 2.3 gm/dL (3.4-4.8); BILIRUBIN,TOTAL 0.4 mg/dL (0.2-1.2); C-REACTIVE PROTEIN 24.68 mg/dL (0.00-0.50); CALCIUM 7.8 mg/dL (8.4-10.2); CREATININE, serum 0.64 mg/dL (0.57-1.11); POTASSIUM 4.2 mmol/L (3.5-4.5); TOTAL PROTEIN 5.1 gm/dL (6.2-8.1)
--- NOTE | 2021-09-07 07:24 | NUR ---
Report given to ELIEL Edwards.
--- NOTE | 2021-09-07 08:36 | NUR ---
Clinical updates faxed to Kaykay at [facility]
--- NOTE | 2021-09-07 09:55 | NUR ---
Contact made with patient's daughter Mary and provided a brief update on her condition. Mary states that she is currently on her way to [place] and that she should be landing at [facility] around 1430.
--- NOTE | 2021-09-07 15:21 | NUR ---
Patient transferred up to room 324. Gabi JULIAN given report and patient care handed off to her.
--- NOTE | 2021-09-07 16:25 | NUR ---
Patient resting in bed. Her daughter from [place] has arrived. Plan of care reviewed. Epidural manages pain, dressing CDI with tape. Bed at 20 degrees. Colostomy appliance intact, no output yet. Triple lumen with dressing intact. Ivf per orders. Scds ble. Pierre to DD, with yellow clear output. PEDRO LUIS drain to compression. Midline with dressing intact. Will monitor closely.
--- NOTE | 2021-09-07 18:32 | NUR ---
Patient sitting up in bed & tolerated small amount of full liquid dinner. Educated her the importance of taking it slow with food. She took evening pills with sips of water and did okay. Pain remains managed. Will report off to nightnurse
--- NOTE | 2021-09-07 20:00 | NUR ---
Report received, assumed care for field marketer. Assessment complete. Alert but confused conversation. VS stable. Denies pain/nausea/shortness of breath. Scant amount of drainage in PEDRO LUIS drain-serosanguineous fluid. Midline dressing-gauze/tape-old drainage marked has not expanded. Dressing to PEDRO LUIS drain with old drainage-changed at this time. Colostomy with no output. Pierre cath with dark yellow urine-some sediment. Tolerated PO. Refusing SCDs. Epidural cath in place. Denies current questions/concerns. WIll monitor.
[2021-09-08 00:33] VITALS: BP 119/55; PULSE 69; TEMP 97.5
[2021-09-08 05:05] VITALS: BP 135/88; PULSE 76; TEMP 97.5
[2021-09-08 07:00] VITALS: BP 138/71; PULSE 77; TEMP 97.7
[2021-09-08 07:11] LABS: BASO # 0.1 K/mm3 (0.0-0.2); BASO % 0.6 % (0.0-2.0); EOS % 0.1 % (0-4.0); GRAN # 5.9 K/mm3 (1.4-6.5); GRAN % 74.8 % (42.2-75.2); HEMOGLOBIN 11.9 g/dl (12.5-16.0); LYMPH # 0.8 K/mm3 (1.2-3.4); LYMPH % 10.5 % (20.0-51.0); MEAN CELL VOLUME 101 fl (80.0-100.0); MEAN CORPUSCULAR HEMOGLOBIN 33 pg (27.0-31.0); MEAN CORPUSCULAR HGB CONC 33 g/dl (33.0-37.0); MEAN PLATELET VOLUME 10.9 fl (7.4-10.4); MONO % 12.8 % (1.7-9.3); PLATELET COUNT 137 K/mm3 (130-400); RED BLOOD COUNT 3.56 M/mm3 (4.10-5.30); REDCELL DISTRIBUTION WIDTH-CV 15.4 % (11.5-14.5)
[2021-09-08 07:37] LABS: CALCIUM 7.8 mg/dL (8.4-10.2); CREATININE, serum 0.64 mg/dL (0.57-1.11); MAGNESIUM 2.2 mg/dL (1.6-2.6)
--- NOTE | 2021-09-08 10:03 | NUR ---
Shift assessment completed. Alert but confused to time and date. Patient is on a full liquid diet. Patient denies any pain at this time. Minimal serousanguineous drainage from PEDRO LUIS drain. Triple lumen in R subclavian is CDI with no signs of redness or swelling. Epidural is in place with no signs of redness or swelling. Colostomy with no output and is CDI. Indwelling tobar cath in place with dark yellow urine. Bilateral SCDs on. Patient is on 3L/ min NC. Dressing changed on midline abdominal incision using sterile technique. Moderate amount of dried sanguineous drainage on the old ABD dressing. Max pulled out 1/2 inch. Aniceto CDI and the incision borders are well approximated. Dressing changed on the PEDRO LUIS drain. Serousanguineous drainage. Drain sponges and ABD dressing applied. Call light placed.
[2021-09-08 10:58] VITALS: BP 111/46; PULSE 66; TEMP 97.5
--- NOTE | 2021-09-08 11:00 | NUR ---
AGREE WITH STUDENT ASSESSMENTS THIS AM.
--- NOTE | 2021-09-08 13:36 | NUR ---
MARY KAY faxed updates to Kaykay at [facility].
[2021-09-08 15:27] VITALS: BP 121/55; PULSE 66; TEMP 97.5
--- NOTE | 2021-09-08 18:00 | NUR ---
PT HAD A GOOD DAY, UP TO RECLINER WITH THERAPY, BACK TO BED IN LATE PM. MINIMAL DRAINAGE TO PEDRO LUIS DRAIN. SEROSANGUENOUS DRAINAGE NOTED. NO OUTPUT FROM NEW COLOSTOMY AT THIS TIME. EPIDURAL IN PLACE AND RUNNING @4MLS.
[2021-09-08 20:00] VITALS: BP 117/51; PULSE 68; TEMP 97.5
[2021-09-09] VITALS (7 sets, daily range): BP systolic 122–154; BP diastolic 46–85; PULSE 62–89; TEMP 97.2–98.6
[2021-09-09 07:17] LABS: BASO % 0.5 % (0.0-2.0); EOS # 0.1 K/mm3 (0.0-0.7); EOS % 0.6 % (0-4.0); GRAN # 4.8 K/mm3 (1.4-6.5); GRAN % 61.1 % (42.2-75.2); HEMOGLOBIN 11.9 g/dl (12.5-16.0); LYMPH # 1.9 K/mm3 (1.2-3.4); LYMPH % 24.2 % (20.0-51.0); MEAN CELL VOLUME 103 fl (80.0-100.0); MEAN CORPUSCULAR HEMOGLOBIN 34 pg (27.0-31.0); MEAN CORPUSCULAR HGB CONC 33 g/dl (33.0-37.0); MEAN PLATELET VOLUME 10.5 fl (7.4-10.4); MONO % 12.8 % (1.7-9.3); PLATELET COUNT 144 K/mm3 (130-400); RED BLOOD COUNT 3.54 M/mm3 (4.10-5.30); REDCELL DISTRIBUTION WIDTH-CV 15.7 % (11.5-14.5)
[2021-09-09 07:18] LABS: HEMATOCRIT 36.6 % (37.0-47.0)
[2021-09-09 07:25] LABS: CALCIUM 7.7 mg/dL (8.4-10.2); CREATININE, serum 0.6 mg/dL (0.57-1.11); POTASSIUM 3.2 mmol/L (3.5-4.5)
--- NOTE | 2021-09-09 09:20 | NUR ---
At the 0900 LOC and Respiration assessment, the patient was sitting up in bed, and stated "I don't feel right" and was very sleepy. Her O2 was at 82% on 1L/min NC with an apical pulse of 50. Upon increasing her O2 to 3L/min NC, her O2 increased to 94% with an apical pulse of 62. Respiratory therapy had been in earier in the morning, and the patient had refused treatment. RT came back to do the treatment, and adjusted her O2 to 2L/min NC.
--- NOTE | 2021-09-09 09:32 | NUR ---
Shift assessment completed. Altert and partially oriented. Patient is on a regular diet. She denies any pain, but reports, "Ijust don't feel right today". Scant amount of serousanguineous drainage from PEDRO LUIS drain. Epidural and triple lumen are in place with no sign of redness or swelling. Colostomy in place with minimal sanguineous drainage. Indwelling catheter in place with dark yellow urine. Midline ABD dressing in place. Bilateral SCDs on. Patient is on 2L/min O2 NC. Once turning on the TV, the patient was more alert and willing to eat her breakfast. Call light placed.
--- NOTE | 2021-09-09 10:45 | NUR ---
PT AND DAUGHTER NOTIFIED NURSING THAT PATIENT HAD 2 ARAM RINGS ON WHEN ADMITTED AND DOES NOT HAVE THEM NOW. CHECKED CHART FOR SAFE RECIPT DID NOT FIND IT. DAUGHTER WENT TO PT'S APT AND LOOKED AND COULD NOT FIND THEM. ON RETURN TO PT'S ROOM DAUGHTER LOOKED IN PERSONAL BELONGINGS BAG AND FOUND THEM IN A SEPRATE PLASTIC BAG. NOTIFIED DANNIELLE STROUD ROLLOFF TRUCK DRIVER OF SITUATION. PT'S DAUGHTER TOOK ONE RING HOME AND THE PATIENT WAS WEARING ONE AT THIS TIME.
--- NOTE | 2021-09-09 11:01 | NUR ---
Midline ABD incision dressing changed. Midline ABD incision edges well approximated with mckenzie intact and minimal serousanguineous drainage on dressing. PEDRO LUIS drain dressing changed with moderate amount of serousanguineous drainage on dressing. PEDRO LUIS drain with 25 mL of bright red drainage emptied. No sign of redness or swelling noted.
[2021-09-10 00:19] VITALS: BP 131/49; PULSE 72; TEMP 97.4
--- NOTE | 2021-09-10 03:16 | NUR ---
PT SLEEPING IN BED, RESPIRATIONS UNLABORED, OXYGEN ON @ 2L. EPIDURAL IN PLACE, HOB IS ELEVATED. PT HAS SLEPT MOST OF NIGHT, AWAKENS EASILY TO SPEECH OR SOUNDS. BECOMES DROWSY QUICKLY AFTER BEING WOKEN ET GOES BACK TO SLEEP. PT ORIENTED TO PERSON ET PLACE BUT NOT TIME. PT HAS STATED THAT PAIN IS MINIMAL @ REST BUT INCREASES WHEN SHE IS REPOSITIONED OR HOB IS MOVED. DRESSING TO MIDLINE ABDOMINAL INCISION IS CDI. DRESSING AROUND PEDRO LUIS DRAIN SITE HAS SMALL AMOUNT OF SEROSANGUINEOUS DRAINAGE. HINOJOSA CATHETER DRAINING CLEAR YELLOW URINE. IVF INFUSING. BED ALARM ON, CALL LIGHT WITHIN REACH.
[2021-09-10 03:48] VITALS: BP 141/67; PULSE 81; TEMP 98
--- NOTE | 2021-09-10 06:05 | NUR ---
PT AWAKENED TO TAKE PO MEDS. EASILY AWAKENS TO SPEECH, IS ORIENTED TO PERSON ET PLACE. PT HAS SLEPT THROUGH NIGHT. RESPIRATIONS UNLABORED, OXYGEN ON @ 2L. EPIDURAL IN PLACE. HOB IS ELEVATED. PT STATES THAT SHE FEELS "NUMB" FROM PAIN MEDICATION. IVF INFUSING INTO RIGHT SUBCLAVIAN TRIPLE LUMEN, BROWN PORT. BLOOD DRAWN FOR LAB FROM WHITE PORT. PT HAS OUTPUT FROM OSTOMY THIS MORNING, MODERATE AMOUNT OF BROWN/GREEN LIQUID STOOL. PEDRO LUIS DRAIN IS EMPTIED, 15 ML OF SEROUS DRAINAGE. HINOJOSA CATHETER DRAINING YELLOW URINE. PT DENIES OTHER NEEDS. BED ALARM ON, CALL LIGHT WITHIN REACH.
[2021-09-10 06:51] LABS: BASO % 0.2 % (0.0-2.0); EOS # 0.2 K/mm3 (0.0-0.7); EOS % 2.1 % (0-4.0); GRAN # 5.3 K/mm3 (1.4-6.5); GRAN % 62.9 % (42.2-75.2); HEMATOCRIT 38.9 % (37.0-47.0); HEMOGLOBIN 12.8 g/dl (12.5-16.0); LYMPH # 2.1 K/mm3 (1.2-3.4); LYMPH % 24.2 % (20.0-51.0); MEAN CELL VOLUME 101 fl (80.0-100.0); MEAN CORPUSCULAR HEMOGLOBIN 33 pg (27.0-31.0); MEAN CORPUSCULAR HGB CONC 33 g/dl (33.0-37.0); MEAN PLATELET VOLUME 10.5 fl (7.4-10.4); MONO # 0.8 K/mm3 (0.1-0.6); MONO % 9.2 % (1.7-9.3); PLATELET COUNT 152 K/mm3 (130-400); RED BLOOD COUNT 3.87 M/mm3 (4.10-5.30); REDCELL DISTRIBUTION WIDTH-CV 15.4 % (11.5-14.5)
[2021-09-10 07:04] LABS: CALCIUM 7.5 mg/dL (8.4-10.2); CREATININE, serum 0.56 mg/dL (0.57-1.11); MAGNESIUM 1.7 mg/dL (1.6-2.6); POTASSIUM 3.6 mmol/L (3.5-4.5)
--- NOTE | 2021-09-10 08:00 | NUR ---
PT IS RESTING IN BED THIS AM. SHE IS SLEEPY BUT EASY TO AROUSE. ALERT AND ORIENTED THIS AM. SHE DOES COMPLAIN OF SOME BELLY CRAMPING BUT SAYS THIS IS NORMAL FOR HER. POTASSIUM PROTOCOL IN PLACE FOR A LAB VALUE OF 3.6. SHIFT ASSESSMENT COMPLETE AND MORNING MEDICATIONS GIVEN. PT STATES NO OTHER NEEDS AT THIS TIME. CALL LIGHT WITHIN REACH.
[2021-09-10 09:16] VITALS: BP 143/64; PULSE 81; TEMP 98.5
--- NOTE | 2021-09-10 11:30 | NUR ---
PT WAS PREMEDICATED FOR D/C OF EPIDURAL. DRESSING CHANGED ON ABDOMEN AND PEDRO LUIS DRAIN SITE. THIS STUDENT AND ELIEL PAGAN ASSISTED PT TO BEDSIDE CHAIR. PT DID COMPLAIN OF SOME PAIN WHEN TRANSFERING OTHERWISE TOLERATED WELL.
[2021-09-10 12:49] VITALS: BP 138/76; PULSE 86; TEMP 98.3
--- NOTE | 2021-09-10 13:16 | NUR ---
Message received from the patient's daughter with concerns about the patients mental and emotional status. Mary states that her mother has verbalized " I don't want to do this anymore and i'm ready to give up". Mary states that her mothers attitude has been negative and her motivation has been low since the surgery. Daughter has noticed a steady decline in the patient's motivation and mental status over the last 9 months. Mary states that her mother has suffered from depression her entire adult life and has used both medication as well as therapy to treat it. Mary has conflicting feelings not knowing if the statement is really what the patient wants vs. the pain medications vs. advancing dementia. Mary does not want her mother given "options" in fear of her mother completely giving up and states that she is not ready to let her mother give up. Inez Perez, and ELLA provided with update.
[2021-09-10 15:47] VITALS: BP 142/72; PULSE 83; TEMP 98.3
--- NOTE | 2021-09-10 18:20 | NUR ---
ORDERS WERE PUT IN TO D\C PEDRO LUIS DRAIN AND HINOJOSA. THIS STUDENT AND ELIEL PAGAN REMOVED BOTH THE DRAIN AND HINOJOSA. PT TOLERATED WELL AND DOES NOT REPORT ANY PAIN AFTER REMOVAL. PT HAS NO OTHER NEEDS AT THIS TIME. CALL LIGHT WITHIN REACH.
[2021-09-10 21:40] VITALS: BP 154/69; PULSE 89; TEMP 98
[2021-09-11 00:29] VITALS: BP 127/57; PULSE 83; TEMP 97.3
[2021-09-11 03:52] VITALS: BP 139/59; PULSE 78; TEMP 97.6
--- NOTE | 2021-09-11 06:35 | NUR ---
PT HAS DONE WELL THROUGH NIGHT, IS PLEASANT, NO NEW COMPLAINTS. PT CONTINUES TO HAVE ABDOMINAL PAIN, MADE WORSE BY MOVEMENT. PO PAIN MEDS ADMINISTERED PRN. COLOSTOMY HAS SMALL AMOUNT OF OUTPUT. PUREWICK WAS PLACED LAST NIGHT, PT HAS HAD 500 ML CLEAR YELLOW URINE. BLOOD DRAWN FROM TRIPLE LUMEN FOR LABS.
[2021-09-11 07:38] LABS: BASO % 0.3 % (0.0-2.0); EOS # 0.2 K/mm3 (0.0-0.7); EOS % 1.6 % (0-4.0); GRAN # 7.3 K/mm3 (1.4-6.5); GRAN % 69.7 % (42.2-75.2); HEMOGLOBIN 12.4 g/dl (12.5-16.0); LYMPH # 2.2 K/mm3 (1.2-3.4); LYMPH % 20.7 % (20.0-51.0); MEAN CELL VOLUME 99 fl (80.0-100.0); MEAN CORPUSCULAR HEMOGLOBIN 33 pg (27.0-31.0); MEAN CORPUSCULAR HGB CONC 34 g/dl (33.0-37.0); MEAN PLATELET VOLUME 10.5 fl (7.4-10.4); MONO # 0.7 K/mm3 (0.1-0.6); MONO % 6.4 % (1.7-9.3); PLATELET COUNT 160 K/mm3 (130-400); RED BLOOD COUNT 3.72 M/mm3 (4.10-5.30)
[2021-09-11 07:43] LABS: HEMATOCRIT 36.7 % (37.0-47.0)
[2021-09-11 08:04] LABS: CALCIUM 7.9 mg/dL (8.4-10.2); CREATININE, serum 0.52 mg/dL (0.57-1.11); POTASSIUM 3.5 mmol/L (3.5-4.5)
[2021-09-11 09:09] VITALS: BP 136/71; PULSE 88; TEMP 97.3
--- NOTE | 2021-09-11 09:21 | NUR ---
Patient up to chair with therapy assist. Patient does not like the chair. She is going to attempt to eat a little bit of breakfast. Her supportive daughter at bedside. Maryjane Sarmiento, made aware of consult. rounded. Max removed. Airstip to midline. New dressing to prior Daniel drain site. Plan of care reviewed, will closely monitor.
--- NOTE | 2021-09-11 10:50 | NUR ---
Patient resting in bed. She has had a busy morning. Patient ate a small amount of breakfast. New central line dressing & caps changed. Patient provided with colosomy cares. Daughter involved in cares. Patient skin beneath appliance very irritated. Crusting technique used to present further breakdown. Stoma powder and cavi wipes used. Wafer cut to fit. 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 Maryjane Sarmiento in to see patient and have discussion. Will monitor.
--- NOTE | 2021-09-11 11:34 | NUR ---
I met with patient and her daughter, Mary, this morning to talk about goals of care. Emily verbalizes that she has been through a great deal and is not sure she can get better. She states that her biggest concern is taking care of her colostomy and also loosing her independence. She was reassured that she will have assistance with her colostomy when she needs it and that she can learn how to take care of it over time--when she is feeling ready. She states that life without her independence is not worth living. We did talk about working towards independence with small steps rather than looking at the whole recovery at once. She wants people to listen to her when she states she is needing to stop and respect that. Again her independence is extremely important to her. She is willing to work with therapy "but doesn't want to be pushed too hard". We did talk about what more of a focus would look like on comfort and that would involve moving to one of the houses--which she doesn't want to do and again--less independence. She is agreeable that she pursue rehab--but they need to listen to me! Daughter is agreeable and supportive.
[2021-09-11 12:14] VITALS: BP 130/66; PULSE 71; TEMP 97.5
[2021-09-11] MEDS ORDERED: ALAVERT10 M1 PO (13:56)
[2021-09-11] MEDS ORDERED: OMNICEF 300MG300 MG PO (13:58)
[2021-09-11] MEDS ORDERED: FLAGYL500 MG PO (13:58)
[2021-09-11] MEDS ORDERED: ARICEPT10 MG PO (13:59)
[2021-09-11] MEDS ORDERED: CORDARONE200 MG/TAB PO (14:00)
[2021-09-11] MEDS ORDERED: COREG 3.123.125 MG/T PO (14:01)
[2021-09-11] MEDS ORDERED: ALDACTONE 25MG25 M1 PO (14:01)
[2021-09-11] MEDS ORDERED: EXCEDRIN1 TAB PO (14:02)
[2021-09-11] MEDS ORDERED: ULTRAM 50MG TAB50 MG PO ×2 (14:02)
[2021-09-11] MEDS ORDERED: TYLENOL 325MG325 MG PO (14:03)
[2021-09-11] MEDS ORDERED: NEURONTIN100 MG/CAP PO (14:05)
[2021-09-11] MEDS ORDERED: EFFEXOR XR37.5 MG/CA PO (14:06)
[2021-09-11] MEDS ORDERED: EFFEXOR XR75 MG/CAP PO (14:06)
[2021-09-11] MEDS ORDERED: WELLBUTRIN XL150 MG PO (14:06)
[2021-09-11] MEDS ORDERED: DESYREL 50MG50 MG PO (14:06)
[2021-09-11] MEDS ORDERED: XANAX 0.5MG0.5 MG PO (14:06)
[2021-09-11] MEDS ORDERED: REQUIP0.25 MG PO (14:07)
[2021-09-11] MEDS ORDERED: LASIX 20MG TABL20 MG PO (14:07)
[2021-09-11] MEDS ORDERED: FLONASEALLERGY NS (14:08)
[2021-09-11] MEDS ORDERED: PEPCID 20MG TAB20 MG PO (14:09)
[2021-09-11] MEDS ORDERED: PROTONIX 40MG T40 MG PO (14:09)
[2021-09-11] MEDS ORDERED: SYNTHROID0.05 MG/TA PO (14:09)
[2021-09-11] MEDS ORDERED: VITAMIN D31000 I1 PO (14:09)
[2021-09-11] MEDS ORDERED: ZOFRAN 4MG T4 MG/TAB PO ×2 (14:09)
[2021-09-11] MEDS ORDERED: VISION FORMULA1 EAC1 PO (14:10)
[2021-09-11] MEDS ORDERED: FOSAMAX 70MG TA70 MG PO (14:10)
[2021-09-11] MEDS ORDERED: ROXICODONE 55 MG/TAB PO (14:21)
--- NOTE | 2021-09-11 14:26 | NUR ---
A palliative care consult was ordered. Maryjane, palliative care nurse, met with the patient and her daughter, Mary. The patient would like to pursue with going to [facility] for rehab, but does not want to be pushed too hard and wants to be listened to, when she states that she has had enough. The daughter is supportive of the plan. The PA notified SW that they would be ready to discharge the patient today. MARY KAY notified Kaykay at [facility] of the above and faxed over updates. Kaykay reports that they are good with accepting the patient today. MARY KAY contacted and updated the patient's daughter, Mary. Mary is in agreement to the plan. MARY KAY read the IM form outloud to Mary over the phone. Mary verbalized understanding and gave SW approval to sign the form on her behalf. MARY KAY placed a copy in the patient's room. The patient is to discharge today, 09/11, to [facility] for a skilled stay. Transportation was scheduled at 1500, via [facility]. MARY KAY informed the patient's daughter and RN of the time. They were all agreeable to the time. No additional needs at this time.
[2021-09-11 15:02] VITALS: BP 130/66; PULSE 71; TEMP 97.5
--- NOTE | 2021-09-11 15:45 | NUR ---
Patient ready for discharge. Her supportive daughter at bedside. Central line removed, protocol followed. Patient tolerated well. Patient up to bedside commode voided & assisted with dressing. Patient to [facility] with transportation. One tab roxicodone prior to discharge. Report called to [facility] nurse. All questions answered. Ostomy appliance intact. midline drg intact.
== END 2021-09-11 15:45 | DRG 329 ==
LOC: COL.ER 13:26 → SURG 15:54 → ICU 09-06 20:40 → SURG 09-07 14:13
PROVIDERS: Personal Emergency Response Attendant; Physician Assistant; Surgery; ADMIT Internal Medicine
PROC: 0DTN0ZZ Resection of Sigmoid Colon, Open Approach (ICD-10-PCS; principal; 2021-09-06 18:00)
PROC: 0D1M0Z4 Bypass Descending Colon to Cutaneous, Open Approach (ICD-10-PCS; 2021-09-06 18:00)
PROC: 05H633Z Insertion of Infusion Device into Left Subclavian Vein, Percutaneous Approach (ICD-10-PCS; 2021-09-06 18:00)
DX: K57.20 Diverticulitis of large intestine with perforation and abscess without bleeding (principal); J96.01 Acute respiratory failure with hypoxia; I50.22 Chronic systolic (congestive) heart failure; F32.A Depression, unspecified; K21.9 Gastro-esophageal reflux disease without esophagitis; M79.7 Fibromyalgia; G89.29 Other chronic pain; G62.9 Polyneuropathy, unspecified; F41.9 Anxiety disorder, unspecified; I48.91 Unspecified atrial fibrillation; M81.0 Age-related osteoporosis without current pathological fracture; E03.9 Hypothyroidism, unspecified; I11.0 Hypertensive heart disease with heart failure; K80.20 Calculus of gallbladder without cholecystitis without obstruction; F43.20 Adjustment disorder, unspecified; E87.6 Hypokalemia; Z20.822 Contact with and (suspected) exposure to COVID-19; Z88.0 Allergy status to penicillin; Z95.0 Presence of cardiac pacemaker; Z23 Encounter for immunization
CPT/HCPCS: 99222-AI; 99232-AI; 99233-AI; 99239; A4314; A9284; C1751; J0330; J0692; J0696; J1100; J1650; J1956; J2185; J2250; J2270; J2370; J2405; J2795; J3010; J3475; J7030; J7050; J7120; Q9967

== ENCOUNTER → 2021-09-21 | Outpatient (CLI) | payer MEDICARE, BC ==
[~2021-09-21] MED LIST changes: +ALAVERT10 M1 PO; +ARICEPT10 MG PO; +CORDARONE200 MG/TAB PO; +DESYREL 50MG50 MG PO; +EFFEXOR XR37.5 MG/CA PO; +EFFEXOR XR75 MG/CAP PO; +FLAGYL500 MG PO; +FLONASEALLERGY NS; +FOSAMAX 70MG TA70 MG PO; +PEPCID 20MG TAB20 MG PO; +PROTONIX 40MG T40 MG PO; +REQUIP0.25 MG PO; +ROXICODONE 55 MG/TAB PO; +SYNTHROID0.05 MG/TA PO; +TYLENOL 325MG325 MG PO; +VISION FORMULA1 EAC1 PO; +VITAMIN D31000 I1 PO; +WELLBUTRIN XL150 MG PO; +XANAX 0.5MG0.5 MG PO; +ZOFRAN 4MG T4 MG/TAB PO
== END ==
LOC: ZCOL.LAB 17:45
DX: Z01.89 Encounter for other specified special examinations (principal)

== ENCOUNTER → 2022-04-23 | Outpatient (CLI) | payer MEDICARE, BC ==
[2022-04-23 15:41] LABS: ALBUMIN 3.5 gm/dL (3.4-4.8); BILIRUBIN,TOTAL 0.5 mg/dL (0.2-1.2); CALCIUM 8.7 mg/dL (8.4-10.2); CREATININE, serum 0.91 mg/dL (0.57-1.11); POTASSIUM 4.2 mmol/L (3.5-4.5); THYROID STIMULATING HORMONE 2.931 uIU/mL (0.350-4.940); TOTAL PROTEIN 6.1 gm/dL (6.2-8.1)
[2022-04-23 15:42] LABS: BASO # 0.1 K/mm3 (0.0-0.2); BASO % 0.9 % (0.0-2.0); EOS # 0.1 K/mm3 (0.0-0.7); EOS % 1.9 % (0.0-4.0); GRAN # 3.2 K/mm3 (1.4-6.5); GRAN % 46.6 % (42.2-75.2); HEMOGLOBIN 13.2 g/dl (12.5-16.0); LYMPH # 2.8 K/mm3 (1.2-3.4); MEAN CELL VOLUME 101 fl (80.0-100.0); MEAN CORPUSCULAR HEMOGLOBIN 33 pg (27-31); MEAN CORPUSCULAR HGB CONC 33 g/dl (33.0-37.0); MONO # 0.6 K/mm3 (0.1-0.6); MONO % 9.3 % (1.7-9.3); PLATELET COUNT 183 K/mm3 (130-400); RED BLOOD COUNT 3.98 M/mm3 (4.10-5.30); REDCELL DISTRIBUTION WIDTH-CV 13.4 % (11.5-14.5)
== END ==
LOC: ZCOL.LAB 15:36
PROVIDERS: Nurse Practitioner Family
DX: E03.9 Hypothyroidism, unspecified (principal); I10 Essential (primary) hypertension; E21.3 Hyperparathyroidism, unspecified

== ENCOUNTER 2022-07-15 12:14 | Outpatient (CLI) | payer MEDICARE, BC ==
[~2022-07-15] VITALS: Ht 175.3 cm; Wt 72.9 kg
[~2022-07-15 12:14] MED LIST changes: +NEURONTIN800 MG/TAB PO
[2022-07-15 12:54] VITALS: BP 131/84; PULSE 60; TEMP 97
[2022-07-15 13:01] LABS: BASO # 0.1 K/mm3 (0.0-0.2); BASO % 0.9 % (0.0-2.0); EOS # 0.2 K/mm3 (0.0-0.7); EOS % 2.2 % (0.0-4.0); GRAN # 3.7 K/mm3 (1.4-6.5); GRAN % 54.1 % (42.2-75.2); HEMATOCRIT 41.7 % (37.0-47.0); HEMOGLOBIN 14.2 g/dl (12.5-16.0); LYMPH # 2.3 K/mm3 (1.2-3.4); LYMPH % 33.7 % (20.0-51.0); MEAN CELL VOLUME 95 fl (80.0-100.0); MEAN CORPUSCULAR HEMOGLOBIN 32 pg (27-31); MEAN CORPUSCULAR HGB CONC 34 g/dl (33.0-37.0); MEAN PLATELET VOLUME 10.4 fl (7.4-10.4); MONO # 0.6 K/mm3 (0.1-0.6); PLATELET COUNT 169 K/mm3 (130-400); REDCELL DISTRIBUTION WIDTH-CV 12.8 % (11.5-14.5)
[2022-07-15] MEDS ORDERED: XANAX 0.5MG0.5 MG PO (13:06)
[2022-07-15] MEDS ORDERED: ASPERCREME85G TP (13:07)
[2022-07-15] MEDS ORDERED: BENADRYL25 M2 PO (13:08)
[2022-07-15] MEDS ORDERED: ORAL PAIN REL9.35 GM MM (13:09)
[2022-07-15] MEDS ORDERED: BIOTENE DRY M1000 ML PO (13:10)
[2022-07-15 13:11] LABS: PROTHROMBIN TIME 11.3 SECONDS (9.7-12.8)
[2022-07-15] MEDS ORDERED: DULCOLAX S10 MG/SUPP RC (13:11)
[2022-07-15 13:12] LABS: CALCIUM 8.8 mg/dL (8.4-10.2); CREATININE, serum 0.95 mg/dL (0.57-1.11); POTASSIUM 4.4 mmol/L (3.5-4.5)
[2022-07-15] MEDS ORDERED: DEPAKOTE ER 25250 MG PO (13:12)
[2022-07-15] MEDS ORDERED: EXCEDRIN1 TAB PO (13:12)
[2022-07-15] MEDS ORDERED: ALLEGRA 180MG180 MG PO (13:13)
[2022-07-15] MEDS ORDERED: LASIX 40MG TABL40 MG PO (13:14)
[2022-07-15] MEDS ORDERED: MILK OF MA400 MG/52 PO (13:16)
[2022-07-15] MEDS ORDERED: IMODIUM 2MG CAPS2 MG PO (13:16)
[2022-07-15] MEDS ORDERED: PROTONIX 40MG T40 MG PO (13:17)
[2022-07-15] MEDS ORDERED: MYLANTA 150 ML150 M1 PO (13:17)
[2022-07-15] MEDS ORDERED: MIRALAX PA17 GM/Dose PO (13:17)
[2022-07-15] MEDS ORDERED: REQUIP 0.5MG0.5 MG PO (13:18)
[2022-07-15] MEDS ORDERED: SYNTHROID0.05 MG/TA PO (13:19)
[2022-07-15] MEDS ORDERED: ALDACTONE 25MG25 M1 PO (13:19)
[2022-07-15] MEDS ORDERED: ULTRAM 50MG TAB50 MG PO (13:20)
[2022-07-15] MEDS ORDERED: EFFEXOR XR75 MG/CAP PO (13:21)
[2022-07-15] MEDS ORDERED: ZOFRAN ODT4 MG PO (13:23)
[2022-07-15 14:30] VITALS: BP 140/43; PULSE 60
[2022-07-15 14:45] VITALS: BP 119/65; PULSE 67
[2022-07-15 15:00] VITALS: BP 125/62; PULSE 60
[2022-07-15 15:15] VITALS: BP 119/72; PULSE 61
[2022-07-15 15:30] VITALS: BP 124/58; PULSE 59
--- NOTE | 2022-07-15 15:45 | NUR ---
DC instructions reviewed with pt, she expresses understanding. Nurse Communication form completed and sent with DC papers, pt aware she should give this to [facility] nurses. She ambulates around dept with walker, standby assist, and then is assisted to wheelchair and taken to meet Psychiatric transport at ED entrance. Personal belongings, including walker sent with pt. IV site wrapped with coban.
== END 2022-07-15 15:42 ==
LOC: COL.RAD 12:14
PROVIDERS: Internal Medicine Cardiovascular Disease
DX: I34.0 Nonrheumatic mitral (valve) insufficiency (principal)
CPT/HCPCS: J2704; J7030

== ENCOUNTER → 2022-08-19 | Outpatient (CLI) | payer MEDICARE, BC ==
[~2022-08-19] MED LIST changes: +ALLEGRA 180MG180 MG PO; +ASPERCREME85G TP; +BIOTENE DRY M1000 ML PO; +DEPAKOTE ER 25250 MG PO; +DULCOLAX S10 MG/SUPP RC; +IMODIUM 2MG CAPS2 MG PO; +LASIX 40MG TABL40 MG PO; +MILK OF MA400 MG/52 PO; +MIRALAX PA17 GM/Dose PO; +MYLANTA 150 ML150 M1 PO; +ORAL PAIN REL9.35 GM MM; +REQUIP 0.5MG0.5 MG PO; +ZOFRAN ODT4 MG PO
== END ==
LOC: COL.RAD 12:54
DX: R13.12 Dysphagia, oropharyngeal phase (principal)

== ENCOUNTER → 2023-02-08 | Outpatient (REF) | payer MEDICARE, BC ==
[2023-02-08 10:58] LABS: CALCIUM 9.3 mg/dL (8.4-10.2); CREATININE, serum 0.88 mg/dL (0.57-1.11)
== END ==
LOC: ZCOL.LAB 10:47
PROVIDERS: Physician Assistant
DX: E87.1 Hypo-osmolality and hyponatremia (principal)

== ENCOUNTER → 2023-02-16 | Outpatient (REF) | payer MEDICARE, BC ==
[2023-02-16 19:34] LABS: CALCIUM 8.9 mg/dL (8.4-10.2); CREATININE, serum 0.83 mg/dL (0.57-1.11); POTASSIUM 3.6 mmol/L (3.5-4.5)
== END ==
LOC: ZCOL.LAB 18:55
DX: E87.1 Hypo-osmolality and hyponatremia (principal)

== ENCOUNTER → 2023-02-19 | Outpatient (CLI) | payer MEDICARE, BC ==
[2023-02-19 19:56] LABS: COLLECTION METHOD CLEAN CATCH
[2023-02-19 20:03] LABS: BASO # 0.1 K/mm3 (0.0-0.2); BASO % 0.5 % (0.0-2.0); EOS % 0.3 % (0.0-4.0); GRAN # 11.4 K/mm3 (1.4-6.5); GRAN % 82.6 % (42.2-75.2); HEMATOCRIT 42.7 % (37.0-47.0); HEMOGLOBIN 13.8 g/dl (12.5-16.0); LYMPH # 0.9 K/mm3 (1.2-3.4); LYMPH % 6.7 % (20.0-51.0); MEAN CELL VOLUME 94 fl (80.0-100.0); MEAN CORPUSCULAR HEMOGLOBIN 30 pg (27-31); MEAN CORPUSCULAR HGB CONC 32 g/dl (33.0-37.0); MONO # 1.3 K/mm3 (0.1-0.6); MONO % 9.4 % (1.7-9.3); PLATELET COUNT 182 K/mm3 (130-400); RED BLOOD COUNT 4.54 M/mm3 (4.10-5.30); REDCELL DISTRIBUTION WIDTH-CV 14.1 % (11.5-14.5)
[2023-02-19 20:11] LABS: MUCOUS Present (NOT PRESENT); PH 5.5 (5.0-8.5); URINE APPEARANCE Clear (CLEAR/HAZY); URINE BACTERIA Rare /hpf (NONE SEEN); URINE BLOOD TRACE-LYSED (NEGATIVE); URINE COLOR Yellow (YELLOW); URINE GLUCOSE Negative (NEGATIVE); URINE KETONE Negative (NEGATIVE); URINE NITRATE Negative (NEGATIVE); URINE PROTEIN(semi-quant) 2+ (NEGATIVE); URINE UROBILINOGEN 0.2 E.U/dL (0.2-1.0)
[2023-02-19 20:21] LABS: ALBUMIN 3.2 gm/dL (3.4-4.8); BILIRUBIN,TOTAL 0.7 mg/dL (0.2-1.2); CALCIUM 9.1 mg/dL (8.4-10.2); CREATININE, serum 0.86 mg/dL (0.57-1.11); POTASSIUM 4.3 mmol/L (3.5-4.5); TOTAL PROTEIN 6.7 gm/dL (6.2-8.1)
== END ==
LOC: ZCOL.LAB 19:49
PROVIDERS: Internal Medicine
DX: I50.22 Chronic systolic (congestive) heart failure (principal); G31.84 Mild cognitive impairment of uncertain or unknown etiology

== ENCOUNTER → 2023-10-27 | Outpatient (CLI) | payer MEDICARE, BC ==
[~2023-10-27] MED LIST changes: +CLEOCIN HC150 MG/CAP PO; +IPRATROPIUM BROM3 M1 IH; +MAGNESIUM200 MG PO; +MUCUS RELIEF400 M1 PO; +PERIDEX (CHLOR480 ML MM; +RICOLA HERB TH1 EACH MM; +SALINE 45 ML45 ML NS; +SYSTANE BALANCE10 M1 OP
[2023-10-27 09:16] LABS: CALCIUM 9.2 mg/dL (8.4-10.2); CREATININE, serum 1.09 mg/dL (0.57-1.11); POTASSIUM 3.9 mmol/L (3.5-4.5)
== END ==
LOC: ZCOL.LAB 08:54
PROVIDERS: Internal Medicine
DX: I50.22 Chronic systolic (congestive) heart failure (principal)

== ENCOUNTER → 2023-11-04 | Outpatient (REF) | payer MEDICARE, BC ==
[2023-11-04 12:47] LABS: ALBUMIN 3.4 gm/dL (3.4-4.8); BASO # 0.1 K/mm3 (0.0-0.2); BASO % 0.6 % (0.0-2.0); BILIRUBIN,TOTAL 0.4 mg/dL (0.2-1.2); CALCIUM 9.2 mg/dL (8.4-10.2); CREATININE, serum 1.06 mg/dL (0.57-1.11); EOS # 0.2 K/mm3 (0.0-0.7); EOS % 1.7 % (0.0-4.0); GRAN # 4.8 K/mm3 (1.4-6.5); GRAN % 51.7 % (42.2-75.2); HEMATOCRIT 40.1 % (37.0-47.0); HEMOGLOBIN 13.4 g/dl (12.5-16.0); LYMPH # 3.1 K/mm3 (1.2-3.4); LYMPH % 33.4 % (20.0-51.0); MEAN CELL VOLUME 94 fl (80.0-100.0); MEAN CORPUSCULAR HEMOGLOBIN 32 pg (27-31); MEAN CORPUSCULAR HGB CONC 33 g/dl (33.0-37.0); MEAN PLATELET VOLUME 10.7 fl (7.4-10.4); MONO # 1.2 K/mm3 (0.1-0.6); MONO % 12.4 % (1.7-9.3); PLATELET COUNT 232 K/mm3 (130-400); POTASSIUM 3.2 mmol/L (3.5-4.5); RED BLOOD COUNT 4.26 M/mm3 (4.10-5.30); REDCELL DISTRIBUTION WIDTH-CV 13.7 % (11.5-14.5); THYROID STIMULATING HORMONE 6.69 uIU/mL (0.350-4.940); TOTAL PROTEIN 6.3 gm/dL (6.2-8.1)
[2023-11-04 12:49] LABS: VALPROIC ACID (DEPAKENE) 56.6 ug/mL (43.5-90.5)
== END ==
LOC: ZCOL.LAB 12:32
PROVIDERS: Nurse Practitioner Family
DX: D35.1 Benign neoplasm of parathyroid gland (principal); D35.00 Benign neoplasm of unspecified adrenal gland; F33.1 Major depressive disorder, recurrent, moderate

== ENCOUNTER → 2023-11-10 | Outpatient (REF) | payer MEDICARE, BC ==
[2023-11-10 16:46] LABS: CALCIUM 8.8 mg/dL (8.4-10.2); CREATININE, serum 1.03 mg/dL (0.57-1.11); POTASSIUM 3.2 mmol/L (3.5-4.5)
== END ==
LOC: ZCOL.LAB 15:10
PROVIDERS: Internal Medicine
DX: I50.22 Chronic systolic (congestive) heart failure (principal)

== ENCOUNTER 2023-12-19 05:29 | Emergency (ER) | payer MEDICARE, BC, MEDICAID ==
[~2023-12-19] VITALS: Ht 175.3 cm; Wt 72.7 kg
[2023-12-19 05:31] VITALS: TEMP 98.1
[2023-12-19 06:46] LABS: BASO # 0.1 K/mm3 (0.0-0.2); BASO % 0.8 % (0.0-2.0); EOS # 0.3 K/mm3 (0.0-0.7); GRAN # 4.9 K/mm3 (1.4-6.5); GRAN % 56.6 % (42.2-75.2); HEMATOCRIT 39.8 % (37.0-47.0); HEMOGLOBIN 13.5 g/dl (12.5-16.0); LYMPH # 2.3 K/mm3 (1.2-3.4); MEAN CELL VOLUME 93 fl (80.0-100.0); MEAN CORPUSCULAR HEMOGLOBIN 31 pg (27-31); MEAN CORPUSCULAR HGB CONC 34 g/dl (33.0-37.0); MEAN PLATELET VOLUME 10.9 fl (7.4-10.4); MONO % 11.2 % (1.7-9.3); PLATELET COUNT 174 K/mm3 (130-400); REDCELL DISTRIBUTION WIDTH-CV 13.7 % (11.5-14.5)
[2023-12-19 07:09] LABS: CALCIUM 9.2 mg/dL (8.4-10.2); CREATININE, serum 1.03 mg/dL (0.57-1.11); POTASSIUM 3.9 mmol/L (3.5-4.5)
[2023-12-19 07:13] LABS: PROTHROMBIN TIME 10.5 SECONDS (9.7-12.8)
[2023-12-19 07:16] LABS: PARTIAL THROMBOPLASTIN TIME 24.7 SECONDS (26.0-37.0)
[2023-12-19] MEDS ORDERED: NORCO 325 MG-51 TAB PO (07:29)
[2023-12-19 08:04] VITALS: BP 145/71; PULSE 75
== END 2023-12-19 08:06 | disposition home or self-care (01) ==
LOC: COL.ER 05:29
PROVIDERS: Internal Medicine
DX: S01.01XA Laceration without foreign body of scalp, initial encounter (principal); Z87.891 Personal history of nicotine dependence; W01.190A Fall on same level from slipping, tripping and stumbling with subsequent striking against furniture, initial encounter; Y92.129 Unspecified place in nursing home as the place of occurrence of the external cause